=== PATIENT | female | born 1945 | race Asian ===

== ENCOUNTER 2017-09-21 14:17 | Outpatient (CLI) | payer OTHER ==
[2017-09-21 15:26] LABS: POTASSIUM 4.5 mmol/L (3.6-5.2)
[2017-09-21 15:29] LABS: PLATELET COUNT 236 K/uL (152-353)
== END 2017-09-21 18:16 | disposition home or self-care (01) ==
LOC: LAB 14:17
PROVIDERS: Nurse Practitioner Family
DX: E78.4 Other hyperlipidemia (principal); R53.81 Other malaise; R53.83 Other fatigue; Z79.899 Other long term (current) drug therapy; Z51.81 Encounter for therapeutic drug level monitoring; E55.9 Vitamin D deficiency, unspecified
CPT/HCPCS: 80053; 80061; 83036; 84436; 84443; 85027

== ENCOUNTER → 2018-06-30 13:47 | Outpatient (CLI) | payer OTHER | END | disposition home or self-care (01) | LOC: AMB 13:47 | DX: Z04.3 Encounter for examination and observation following other accident (principal) ==

== ENCOUNTER 2018-06-30 14:06 | Emergency (ER) | payer OTHER ==
[~2018-06-30] VITALS: Ht 170.2 cm; Wt 90.7 kg
[2018-06-30 15:52] VITALS: BP 187/96; TEMP 98
== END 2018-06-30 15:59 | disposition home or self-care (01) ==
LOC: ED 14:06
DX: M54.2 Cervicalgia (principal); M62.838 Other muscle spasm; V89.2XXA Person injured in unspecified motor-vehicle accident, traffic, initial encounter; Y92.89 Other specified places as the place of occurrence of the external cause
CPT/HCPCS: 36415; 99283

== ENCOUNTER 2018-09-02 11:16 | Emergency (ER) | payer OTHER ==
[~2018-09-02] VITALS: Ht 170.2 cm; Wt 93.4 kg
[2018-09-02 11:26] VITALS: TEMP 98.2
[2018-09-02] MEDS ORDERED: FLONASE AL50 MCG/ACT INH (12:22)
[2018-09-02] MEDS ORDERED: HYDR25TA60 PO (12:25)
[2018-09-02] MEDS ORDERED: LEVOFLOXACIN500 MG PO (12:25)
[2018-09-02] MEDS ORDERED: ROSU10TA PO (12:26)
[2018-09-02 13:15] VITALS: BP 169/88
== END 2018-09-02 13:15 | disposition home or self-care (01) ==
LOC: ED 11:16
DX: M13.861 Other specified arthritis, right knee (principal)
CPT/HCPCS: 99282

== ENCOUNTER 2019-09-13 12:47 | Outpatient (CLI) | payer OTHER ==
[~2019-09-13 12:47] MED LIST: FLONASE AL50 MCG/ACT INH; HYDR25TA60 PO; LEVOFLOXACIN500 MG PO; ROSU10TA PO
== END 2019-09-13 19:02 | disposition home or self-care (01) ==
LOC: US 12:47
DX: M79.661 Pain in right lower leg (principal); R60.0 Localized edema

== ENCOUNTER 2020-06-09 08:45 | Outpatient (CLI) | payer OTHER | END 2020-06-09 21:24 | disposition home or self-care (01) | LOC: MAMMO 08:45 | PROVIDERS: ATTEND Nurse Practitioner Family | DX: Z12.31 Encounter for screening mammogram for malignant neoplasm of breast (principal) ==

== ENCOUNTER 2021-10-08 11:46 | Outpatient (CLI) | payer OTHER | END 2021-10-08 21:27 | disposition home or self-care (01) | LOC: US 11:46 | PROVIDERS: ATTEND Nurse Practitioner | DX: M79.661 Pain in right lower leg (principal); R22.41 Localized swelling, mass and lump, right lower limb ==

== ENCOUNTER 2023-03-10 08:59 | Outpatient (CLI) | payer OTHER | END 2023-03-10 18:36 | disposition home or self-care (01) | LOC: RAD 08:59 | PROVIDERS: ATTEND Nurse Practitioner Family | DX: M54.59 Other low back pain (principal); M79.672 Pain in left foot; M79.671 Pain in right foot ==

== ENCOUNTER 2023-08-10 10:00 | Outpatient (CLI) | payer OTHER | END 2023-08-10 19:03 | disposition home or self-care (01) | LOC: RAD 10:00 | PROVIDERS: ATTEND Nurse Practitioner Family | DX: R05.9 Cough, unspecified (principal) ==